=== PATIENT | female | born 1995 | race Caucasian/White ===

== ENCOUNTER 2018-10-03 20:47 | Emergency (ER) | payer OTHER ==
[~2018-10-03] VITALS: Ht 162.6 cm; Wt 101.8 kg
[~2018-10-03 20:47] MED LIST: FERROUS SULF325 M1 PO; FLONASE NASAL50 MCG; SPRINTEC 2828 DAY OR; VELIVET PO
[2018-10-03 22:26] LABS: HEMATOCRIT 30.2 % (37.0-47.0); HEMOGLOBIN 9.9 g/dl (12.0-16.0); IMMATURE GRANULOCYTES 0.5 % (0.0-5.0); MEAN CORPUSCULAR HGB 28.5 pG CALC (26.0-32.0); MEAN CORPUSCULAR HGB CONC 32.8 g/L CALC (32.0-36.0); NEUT# 6.34 thou/uL (2.00-7.15); RED BLOOD COUNT 3.47 mill/uL (4.20-5.60); RED CELL DISTRI WIDTH 12.5 % (11.5-15.5)
[2018-10-03] MEDS ORDERED: PROVERA10 MG PO (22:47)
[2018-10-03 23:00] VITALS: BP 148/80
== END 2018-10-03 23:00 | disposition home or self-care (01) | DRG 761 ==
LOC: ED 20:47
PROVIDERS: Family Medicine
DX: N93.8 Other specified abnormal uterine and vaginal bleeding (principal)